=== PATIENT | female | born 1990 | race Caucasian/White ===

== ENCOUNTER → 2020-06-30 | Outpatient (CLI) | payer BC ==
--- NOTE | 2020-06-30 14:52 | Diagnostic Imaging Report ---
INDICATION: survey. TECHNIQUE: Multiple real-time grayscale images were obtained over the gravid uterus. COMPARISON: None FINDINGS: There is a single living intrauterine in cephalic presentation. Biometry correlates with a gestational age 19 weeks 6 days. There is normal volume of amniotic fluid. Placenta is posterior. There is no previa. Anatomical survey is unremarkable. This includes a three-vessel cord and four-chamber heart. Heart rate is 143 beats per minute. Cervical length 3.66 cm. Maternal adnexa is unremarkable. Biometrical measurements are as follows: Biparietal 4.53 cm, age 19 weeks 5 days. Head circumference 16.76 cm, age 19 weeks 3 days. Abdominal circumference 14.57 cm, age 20 weeks 0 days. Femur length 3.16 cm, age 19 weeks 6 days. Sonographic estimate age: 19 weeks 6 days. Sonographic estimated date of delivery: 11/18/20. Estimated Weight: 314 gm (+/- 46 gm). LMP percentile: 16%. heart rate: 143 beats per minute. number: 1 of 1. IMPRESSION: Single living intrauterine in cephalic presentation with a sonographically estimated gestational age 19 weeks 6 days and estimated date of confinement 04/18/2021. Dictated by: Dictated on workstation # [id number]
== END ==
LOC: RAD 12:00
PROVIDERS: ATTEND Obstetrics & Gynecology
DX: Z34.92 Encounter for supervision of normal pregnancy, unspecified, second trimester (principal); Z3A.19 19 weeks gestation of pregnancy
CPT/HCPCS: 76805